=== PATIENT | male | born 2005 | race Caucasian/White ===

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

== ENCOUNTER 2023-10-05 22:52 | Emergency (ER) | payer OTHER ==
[2023-10-05] MEDS ORDERED: traMADol HCl 50 MG TAB ONE (23:07)
[2023-10-05] MEDS ORDERED: Amoxicillin/Potassium Clav 875 MG TAB ONE (23:14)
== END 2023-10-05 23:19 | disposition home or self-care (01) ==
LOC: NAV ERS 22:52
DX: K08.89 Other specified disorders of teeth and supporting structures (principal); K04.7 Periapical abscess without sinus; F17.210 Nicotine dependence, cigarettes, uncomplicated
CPT/HCPCS: 99282